=== PATIENT | female | born 1955 | race Caucasian/White ===

== ENCOUNTER 2018-12-30 13:27 | Inpatient (IN) ==
[2018-12-31 05:14] LABS: INR 1.4; Prothrombin Time 16.2 Seconds (9.4-12.1)
[2018-12-31] MEDS ORDERED: *HR* Enoxaparin 120 MG/0.8 ML SYRINGE SQ SCH (06:00)
[2018-12-31] MEDS: Metoprolol XL (24 HR) Succ 25 MG TAB.ER.24H PO SCH (09:57)
[2018-12-31] MEDS: *HR* Enoxaparin 150 MG/ML SYRINGE SQ SCH ×2 (10:05→17:29)
[2018-12-31] MEDS: Nystatin POWDER 30 GM BOTTLE TP SCH ×2 (10:05→20:22)
[2018-12-31] MEDS: *HR* Warfarin 5 MG TABLET PO SCH (17:29)
[2018-12-31] MEDS ORDERED: Mag Hydrox/Al Hydrox/Simeth 30 ML UDC PO PRN (20:33)
--- NOTE | 2018-12-31 22:50 | Internal Med History&Physical ---
Date of Encounter: 12/31/18 Time of Encounter: 22:45 Assessment and Plan (1) CVA (cerebral vascular accident) Current visit: No Status: Acute Continue warfarin and Lovenox and rehabilitation Qualifiers: CVA mechanism: embolism Precerebral and cerebral artery: middle cerebral artery Laterality of affected vessel: bilateral Qualified Code(s): I63.413 - Cerebral infarction due to embolism of bilateral middle cerebral arteries (2) Weakness of left upper extremity Current visit: Yes Status: Acute Rehabilitation (3) Atrial fibrillation Current visit: No Status: Chronic Continue Coumadin Qualifiers: Atrial fibrillation type: paroxysmal Qualified Code(s): I48.0 - Paroxysmal atrial fibrillation (4) Insomnia Current visit: Yes Status: Chronic Qualifiers: Insomnia type: unspecified Qualified Code(s): G47.00 - Insomnia, unspecified (5) Hypothyroid Current visit: Yes Status: Chronic Continue Synthroid Qualifiers: Hypothyroidism type: acquired Qualified Code(s): E03.9 - Hypothyroidism, unspecified (6) Hypertension Current visit: Yes Status: Chronic Continue metoprolol XL Qualifiers: Hypertension type: essential hypertension Qualified Code(s): I10 - Essential (primary) hypertension (7) CKD (chronic kidney disease) stage 3, GFR 30-59 ml/min Current visit: No Status: Chronic Continue to drink plenty of water (8) Diabetes mellitus Current visit: No Status: Chronic Continue proper diet Qualifiers: Diabetes mellitus type: type 2 Diabetes mellitus correction insulin use: without truck terminal manager use Diabetes mellitus complication status: without complication Qualified Code(s): E11.9 - Type 2 diabetes mellitus without complications (9) Morbid obesity with BMI of 45.0-49.9, adult Current visit: No Status: Chronic Decrease calories (10) Heart failure with preserved ejection fraction Current visit: Yes Status: Chronic Continue metoprolol XL Qualifiers: Heart failure chronicity: chronic Qualified Code(s): I50.32 - Chronic diastolic (congestive) heart failure (11) Eczema Current visit: Yes Status: Acute Moisturizing cream as needed Qualifiers: Eczema type: unspecified Qualified Code(s): L30.9 - Dermatitis, unspecified (12) Skin lesions Current visit: Yes Status: Acute (13) Orthostatic dizziness Current visit: Yes Status: Acute Keep hydrated and when she first stands up waiting until her dizziness goes away before she walks (14) Tinea Current visit: Yes Status: Acute (15) Hyperlipidemia Current visit: Yes Status: Acute Continue simvastatin Qualifiers: Hyperlipidemia type: unspecified Qualified Code(s): E78.5 - Hyperlipidemia, unspecified Internal Medicine - H&P: HPI Chief complaint: Left upper extremity weakness Admitted From: Home Plans for Post Hospital Care: Home History of present illness: 63 year old female was admitted to [facility] from December 27 to the 2018. She had stroke symptoms left arm weakness was admitted for care. She reports having the symptoms for about a day before she went into the emergency room. She denied any vision or hearing disturbances and the left lower extremity is was not involved. She reports having TIAs in the past and had carotids that his done but did not hear that there were abnormal. She is a former smoker about it [id number] history. 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 History migraine headaches and insomnia, medicine for that she has acid reflux she reports Pepcid were for home has morbid obesity, hypothyroidism. Peripheral edema, eczema and skin lesions she is concerned about potential cancer recommend she talk with her primary care about diet outpatient consult with dermatology she denies any chest pain shortness breath headache fatigue and abdominal pain associated systems ne gative. Questions answered concerns addressed Past Med Surg Social Fam HX - Past Medical History Medical history: atrial fibrillation, CVA (Left upper extremity weakness), GERD, hypertension, migraine, thyroid disease, TIA, other (Morbid obesity right eye blindness, left eye cataract, orthostatic hypotension, insomnia, eczema) Additional medical history: blind in R eye Psychiatric history: no psych history - Past Surgical History Surgical History: appendectomy, cholecystectomy Additional surgical history: left kidney removed, frontal lobe craniotomy - Social History Smoking Status: Former smoker Packs per day: 0.5 Smokeless Tobacco Status: No Alcohol use: none Drug use: none, other (Uses 3-4 cups coffee a day recommend she is no caffeine with her history of stroke) Current living situation: Home - Independent Activity Level: Independent ambulation - Family History Mother Living Status: (Lymphoma) Father Living Status: (Unsure cause) Internal Medicine - H&P: Meds Docusate [Colace] 200 mg PO DAILY PRN capsule 12/30/18 [Rx] Enoxaparin [Lovenox *PHARMACY WT BASED*] 120 mg SQ Q12HCO mg 12/30/18 [Rx] Levothyroxine [Synthroid] 112 mcg PO DAILY@0630 tablet 12/30/18 [Rx] MOM Conc [MILK OF MAGNESIA conc] 10 ml PO DAILY PRN ud.liq 12/30/18 [Rx] Metoprolol XL (24 HR) Succ [Toprol Xl] 12.5 mg PO DAILY tab.er.24h 12/30/18 [Rx] Nystatin POWDER [Nystop] 1 appl TP BID bottle 12/30/18 [Rx] Simvastatin [Zocor] 40 mg PO HS tablet 12/30/18 [Rx] Warfarin perPT [Coumadin perPT] 7.5 each PO DAILY@1800 each 12/30/18 [Rx] Allergy/AdvReac Type Severity Reaction Status Date / Time Penicillins Allergy Hives Verified 12/27/18 19:55 haloperidol [From Haldol] AdvReac Vomiting Verified 12/27/18 19:55 All Systems PM: A 10-system review of systems was performed and is negative for pertinent findings except as documented above in the HPI. - Constitutional Vitals: Temp Pulse Resp BP Pulse Ox 97.6 F 84 17 136/76 94 12/31/18 18:56 12/31/18 18:56 12/31/18 18:56 12/31/18 18:56 12/31/18 18:56 - Head Head exam: Present: atraumatic, normocephalic - Eye Eye exam: Present: PERRL, conjuntiva pink, sclera anicteric Pupils: Present: PERRL - Neck Neck exam general surgery: Present: supple, trachea midline. Absent: lymphadenopathy - Respiratory Respiratory exam: Present: CTAB. Absent: accessory muscle use, rales, rhonchi, wheezes - Cardiovascular Cardiovascular exam: Present: RRR, +S1, +S2. Absent: diastolic murmur, gallop, rubs, systolic murmur - GI/Abdominal GI/Abdominal exam: Present: normal bowel sounds, soft, no peritoneal signs. Absent: distended, tenderness - Extremities Exam Extremities exam: Present: warm. Absent: calf tenderness, cyanotic, pedal edema - Neurological Exam Neurological exam: Present: CN II-XII intact, oriented X3. Absent: pronater drift, facial droop, speech deficit Additional comments: Left upper extremity weakness, no trade manager strength - Skin Skin exam: Present: dry, intact Additional comments: multiple lesions of various sizes
[2018-12-31] MEDS ORDERED: traZODone 50 MG TABLET PO PRN (23:00)
[2019-01-01] MEDS: Famotidine 20 MG TABLET PO SCH ×3 (00:17→17:09)
[2019-01-01] MEDS: *HR* Enoxaparin 150 MG/ML SYRINGE SQ SCH ×2 (06:08→17:09)
[2019-01-01 06:43] LABS: Basophils % 0.6 %; Eosinophils # 0.2 K/mcL (0.0-0.6); Eosinophils % 3.5 %; Hematocrit 43.5 % (35.3-44.9); Hemoglobin 13.4 g/dL (11.5-15.4); Immature Granulocytes % 1.4 % (0-4); Lymphocytes # 1.7 K/mcL (0.6-4.6); Lymphocytes % 26.2 %; Mean Corpuscular HGB Conc 30.8 g/dL (31.6-35.5); Mean Corpuscular Hemoglobin 28.8 pg (28.0-33.3); Mean Corpuscular Volume 93.3 fL (83.0-100.0); Mean Platelet Volume 9.5 fL (9.4-12.4); Monocytes # 0.3 K/mcL (0.0-1.3); Monocytes % 5.4 %; Platelet Count 255 K/mcL (140-400); Red Blood Count 4.66 M/mcL (3.82-4.97); Red Cell Distribution Width 15.4 % (11.5-14.5); Segmented Neutrophils % 62.9 %; White Blood Count 6.3 K/mcL (4.3-11.1)
[2019-01-01 06:53] LABS: INR 1.8
[2019-01-01 07:05] LABS: Calcium 9.2 mg/dL (8.6-10.3); Chol/HDL Ratio 3.2 (0-4.9); Magnesium 2.2 mg/dL (1.6-2.6); Potassium 4.2 mEq/L (3.5-5.1)
[2019-01-01 07:45] LABS: Thyroid Stimulating Hormone 55.77 mcIU/mL (0.340-5.600)
[2019-01-01] MEDS: Metoprolol XL (24 HR) Succ 25 MG TAB.ER.24H PO SCH (08:51)
[2019-01-01] MEDS: Nystatin POWDER 30 GM BOTTLE TP SCH ×2 (08:52→20:15)
--- NOTE | 2019-01-01 12:31 | Internal Med Progress Note ---
Date of Encounter: 01/01/19 Time of Encounter: 12:30 - Assessment and plan (1) CVA (cerebral vascular accident) Current Visit: No Status: Acute Assessment and plan: Continue the warfarin and Lovenox and rehabilitation Qualifiers: CVA mechanism: embolism Precerebral and cerebral artery: middle cerebral artery Laterality of affected vessel: bilateral Qualified Code(s): I63.413 - Cerebral infarction due to embolism of bilateral middle cerebral arteries (2) Weakness of left upper extremity Current Visit: Yes Status: Acute Assessment and plan: About the same continue rehabilitation (3) Atrial fibrillation Current Visit: No Status: Chronic Assessment and plan: Rate control continue Coumadin Qualifiers: Atrial fibrillation type: paroxysmal Qualified Code(s): I48.0 - Paroxysmal atrial fibrillation (4) Insomnia Current Visit: Yes Status: Chronic Assessment and plan: Improved continue trazodone Qualifiers: Insomnia type: unspecified Qualified Code(s): G47.00 - Insomnia, unspecified (5) Hypothyroid Current Visit: Yes Status: Chronic Assessment and plan: TSA high 55 we will increase the levothyroxine to 125 g Qualifiers: Hypothyroidism type: acquired Qualified Code(s): E03.9 - Hypothyroidism, unspecified (6) Hypertension Current Visit: Yes Status: Chronic Assessment and plan: Controlled continue metoprolol Qualifiers: Hypertension type: essential hypertension Qualified Code(s): I10 - Essential (primary) hypertension (7) CKD (chronic kidney disease) stage 3, GFR 30-59 ml/min Current Visit: No Status: Chronic Assessment and plan: Stable continue on her (8) Diabetes mellitus Current Visit: No Status: Chronic Assessment and plan: Fasting sugar in impaired range so diabetes is controlled on diet Qualifiers: Diabetes mellitus type: type 2 Diabetes mellitus fdc insulin use: without fdc use Diabetes mellitus complication status: without complication Qualified Code(s): E11.9 - Type 2 diabetes mellitus without complications (9) Morbid obesity with BMI of 45.0-49.9, adult Current Visit: No Status: Chronic Assessment and plan: Calorie awareness (10) Heart failure with preserved ejection fraction Current Visit: Yes Status: Chronic Assessment and plan: Stable continue no shortness of breath continue metoprolol XL Qualifiers: Heart failure chronicity: chronic Qualified Code(s): I50.32 - Chronic diastolic (congestive) heart failure (11) Eczema Current Visit: Yes Status: Acute Qualifiers: Eczema type: unspecified Qualified Code(s): L30.9 - Dermatitis, unspecified (12) Skin lesions Current Visit: Yes Status: Acute Assessment and plan: She will asked the primary care provider about dermatology consult (13) Orthostatic dizziness Current Visit: Yes Status: Acute (14) Tinea Current Visit: Yes Status: Acute Assessment and plan: Continue nystatin (15) Hyperlipidemia Current Visit: Yes Status: Acute Assessment and plan: Continue simvastatin we will consider the triglyceride level after the TSH comes back down to normal Qualifiers: Hyperlipidemia type: unspecified Qualified Code(s): E78.5 - Hyperlipidemia, unspecified - Time Spent With Patient 25 - 35 minutes - Subjective Interval history: 63-year-old female resident to rehabilitation after having a CVA with left upper extremity weakness with multiple medical problems. She is here for rehabilitation she denies any chest pain or shortness of breath or other concerning symptoms. We restarted on Pepcid for acid reflex and trazodone for insomnia which seems to be helping. Order follow-up labs shows INR of 1.8 [place] 1.34) 14 triglycerides 176 VLDL 35 vitamin B-12 180 TSH 55.77 these were discussed with the patient she is going to increase the Synthroid and going a B12 supplement seems like her diabetes is diet controlled. Questions answered concerns addressed - Constitutional Vitals: Temp Pulse Resp BP Pulse Ox 97.7 F 75 20 121/77 93 01/01/19 06:38 01/01/19 06:38 01/01/19 06:38 01/01/19 06:38 01/01/19 06:38 Exam: General: Alert and oriented, no acute distress Lungs: Clear to auscultation bilaterally without wheezing or crackles Heart: Regular rate and rythms without murmer or rubs Abdomen: Soft, nontender, Extremities: no edema, redness, no contract design agent strength in the left upper lobe extremity and abduction is weak Internal Medicine: Result - Labs CBC & Chem 7: 01/01/19 06:15 01/01/19 06:15 Labs: Short CBC 01/01/19 Range/Units 06:15 WBC 6.3 (4.3-11.1) K/mcL Hgb 13.4 (11.5-15.4) g/dL Hct 43.5 (35.3-44.9) % Plt Count 255 (140-400) K/mcL Neutrophils # 4.0 (1.6-8.9) K/mcL BMP 01/01/19 06:15 Sodium 138 Potassium 4.2 Chloride 101 Carbon Dioxide 31 H BUN 22 Creatinine 1.34 H Glucose 114 H Calcium 9.2 - ABG Interpretation ABG results: PT/INR, D-dimer PT 21.0 Seconds (9.4-12.1) H 01/01/19 06:15 Consult Discharge Plan - Plan Referrals: Isaac Hernandez [Primary Care Provider] - 1 week
[2019-01-01] MEDS: Cyanocobalamin (B-12) 1,000 MCG TABLET PO SCH (17:09)
[2019-01-01] MEDS: *HR* Warfarin 5 MG TABLET PO SCH (17:09)
[2019-01-02 04:28] LABS: INR 2.2; Prothrombin Time 24.6 Seconds (9.4-12.1)
[2019-01-02] MEDS: *HR* Enoxaparin 150 MG/ML SYRINGE SQ SCH (06:00)
[2019-01-02] MEDS: Nystatin POWDER 30 GM BOTTLE TP SCH ×2 (07:45→20:44)
[2019-01-02] MEDS: Cyanocobalamin (B-12) 1,000 MCG TABLET PO SCH (07:45)
[2019-01-02] MEDS: Famotidine 20 MG TABLET PO SCH ×2 (07:45→16:31)
[2019-01-02] MEDS: Metoprolol XL (24 HR) Succ 25 MG TAB.ER.24H PO SCH (07:45)
[2019-01-02 09:15] LABS: Estimated Average Glucose 151 mg/dl
--- NOTE | 2019-01-02 10:55 | Internal Med Progress Note ---
Date of Encounter: 01/02/19 Time of Encounter: 10:10 - Assessment and plan (1) CVA (cerebral vascular accident) Current Visit: No Status: Acute Assessment and plan: January 02. MRI 12/26/2018 showed scattered acute infarcts within the frontal and parietal lobes bilaterally and 2 punctate acute infarcts in the left occipital lobe, areas of encephalomalacia and gliosis in the right parietal and temporal lobes, and mild global parenchymal volume loss and chronic microvascular ischemic changes. INR is now therapeutic. Lovenox be discontinued. Continue Coumadin and PT/OT. Qualifiers: CVA mechanism: embolism Precerebral and cerebral artery: middle cerebral artery Laterality of affected vessel: bilateral Qualified Code(s): I63.413 - Cerebral infarction due to embolism of bilateral middle cerebral arteries (2) Hypothyroid Current Visit: Yes Status: Chronic Assessment and plan: January 02. Synthroid was increased from 100 g daily on admission at [facility] to a dose of 112 g daily during her hospital stay. TSH today was further elevated at 55.77 on 01/01/2019. Increase dose to 200 g daily. TSH will be monitored. Qualifiers: Hypothyroidism type: acquired Qualified Code(s): E03.9 - Hypothyroidism, unspecified (3) Hypertension Current Visit: Yes Status: Chronic Assessment and plan: January 02. Continue Toprol XL Qualifiers: Hypertension type: essential hypertension Qualified Code(s): I10 - Essential (primary) hypertension (4) Diabetes mellitus Current Visit: No Status: Chronic Assessment and plan: January 02. Diet controlled. Hemoglobin A1c is 6.9%. Qualifiers: Diabetes mellitus type: type 2 Diabetes mellitus retirement insulin use: without tank terminal gauger use Diabetes mellitus complication status: without complication Qualified Code(s): E11.9 - Type 2 diabetes mellitus without complications (5) Atrial fibrillation Current Visit: No Status: Chronic Assessment and plan: January 02. Discontinue Lovenox and continue Coumadin for CVA prophylaxis. Qualifiers: Atrial fibrillation type: paroxysmal Qualified Code(s): I48.0 - Paroxysmal atrial fibrillation (6) Heart failure with preserved ejection fraction Current Visit: Yes Status: Chronic Assessment and plan: January 02. Echocardiogram cannot be completed on 12/27/2018. BN peptide normal at 35. Continue Toprol-XL. Qualifiers: Heart failure chronicity: chronic Qualified Code(s): I50.32 - Chronic diastolic (congestive) heart failure (7) CKD (chronic kidney disease) Current Visit: No Status: Suspected Assessment and plan: January 02. Monitor renal indices. Qualifiers: Chronic kidney disease stage: stage 3 (moderate) Qualified Code(s): N18.3 - Chronic kidney disease, stage 3 (moderate) - Subjective Interval history: January 02. She was hospitalized at [facility] December 2226 for CVA. Carotid Doppler study showed left proximal ICA with 60-79% stenosis. Neurology did not feel it was the cause of the CVA. She had atrial fibrillation documented (presumably new onset) and was started on Coumadin with Lovenox bridge. 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 - Constitutional Vitals: Temp Pulse Resp BP Pulse Ox 98.2 F 76 18 152/87 97 01/02/19 06:50 01/02/19 06:50 01/02/19 06:50 01/02/19 06:50 01/02/19 06:50 Exam: She is sitting in a chair at bedside resting comfortably. Her affect is bright and cheerful. Heart is regular without murmurs gallops or ectopics. Lungs are clear. Extremities show no pitting edema. Neurologic exam shows inability to pronate the left arm. She cannot elevate the left arm to same height as the right. Ankle and knee flexion and extension against resistance are 2 over 2 bilaterally Internal Medicine: Result - Labs CBC & Chem 7: 01/01/19 06:15 01/01/19 06:15 - ABG Interpretation ABG results: PT/INR, D-dimer PT 24.6 Seconds (9.4-12.1) H 01/02/19 03:53 Consult Discharge Plan - Plan Referrals: Isaac Hernandez [Primary Care Provider] - 1 week
[2019-01-02] MEDS ORDERED: Cyanocobalamin (B-12) 1,000 MCG/ML VIAL IM ONE (11:09)
[2019-01-02] MEDS: *HR* Warfarin 5 MG TABLET PO SCH (16:31)
[2019-01-03] MEDS: Famotidine 20 MG TABLET PO SCH ×2 (06:02→18:10)
[2019-01-03 07:31] LABS: INR 2.3; Prothrombin Time 26.2 Seconds (9.4-12.1)
[2019-01-03] MEDS: Nystatin POWDER 30 GM BOTTLE TP SCH ×2 (09:00→22:26)
[2019-01-03] MEDS: Cyanocobalamin (B-12) 1,000 MCG TABLET PO SCH (09:00)
[2019-01-03] MEDS: Metoprolol XL (24 HR) Succ 25 MG TAB.ER.24H PO SCH (09:00)
--- NOTE | 2019-01-03 15:11 | Internal Med Progress Note ---
Date of Encounter: 01/03/19 Time of Encounter: 15:04 - Assessment and plan (1) CVA (cerebral vascular accident) Current Visit: No Status: Acute Assessment and plan: January 02. MRI 12/26/2018 showed scattered acute infarcts within the frontal and parietal lobes bilaterally and 2 punctate acute infarcts in the left occipital lobe, areas of encephalomalacia and gliosis in the right parietal and temporal lobes, and mild global parenchymal volume loss and chronic microvascular ischemic changes. INR is now therapeutic. Lovenox be discontinued. Continue Coumadin and PT/OT. Qualifiers: CVA mechanism: embolism Precerebral and cerebral artery: middle cerebral artery Laterality of affected vessel: bilateral Qualified Code(s): I63.413 - Cerebral infarction due to embolism of bilateral middle cerebral arteries (2) Hypothyroid Current Visit: Yes Status: Chronic Assessment and plan: January 02. Synthroid was increased from 100 g daily on admission at [facility] to a dose of 112 g daily during her hospital stay. TSH today was further elevated at 55.77 on 01/01/2019. Increase dose to 200 g daily. TSH will be monitored. Qualifiers: Hypothyroidism type: acquired Qualified Code(s): E03.9 - Hypothyroidism, unspecified (3) Hypertension Current Visit: Yes Status: Chronic Assessment and plan: January 02. Continue Toprol XL Qualifiers: Hypertension type: essential hypertension Qualified Code(s): I10 - Essential (primary) hypertension (4) Diabetes mellitus Current Visit: No Status: Chronic Assessment and plan: January 02. Diet controlled. Hemoglobin A1c is 6.9%. Qualifiers: Diabetes mellitus type: type 2 Diabetes mellitus half-way insulin use: without intermediate accountant use Diabetes mellitus complication status: without complication Qualified Code(s): E11.9 - Type 2 diabetes mellitus without complications (5) Atrial fibrillation Current Visit: No Status: Chronic Assessment and plan: January 02. Discontinue Lovenox and continue Coumadin for CVA prophylaxis. Qualifiers: Atrial fibrillation type: paroxysmal Qualified Code(s): I48.0 - Paroxysmal atrial fibrillation (6) Heart failure with preserved ejection fraction Current Visit: Yes Status: Chronic Assessment and plan: January 02. Echocardiogram could not be completed on 12/27/2018. BN peptide normal at 35. Continue Toprol-XL. Qualifiers: Heart failure chronicity: chronic Qualified Code(s): I50.32 - Chronic diastolic (congestive) heart failure (7) CKD (chronic kidney disease) Current Visit: No Status: Chronic Assessment and plan: January 02. Monitor renal indices. Qualifiers: Chronic kidney disease stage: stage 3 (moderate) Qualified Code(s): N18.3 - Chronic kidney disease, stage 3 (moderate) - Subjective Interval history: January 02. She was hospitalized at [facility] December 2226 for CVA. Carotid Doppler study showed left proximal ICA with 60-79% stenosis. Neurology did not feel it was the cause of the CVA. She had atrial fibrillation documented (presumably new onset) and was started on Coumadin with Lovenox bridge. 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 January 03. She has no new complaints. She feels she is making progress in therapy. - Constitutional Vitals: Temp Pulse Resp BP Pulse Ox 98.4 F 72 16 133/83 96 01/03/19 06:51 01/03/19 06:51 01/03/19 06:51 01/03/19 06:51 01/03/19 06:51 Exam: She is resting comfortably in a chair at bedside and appears in no acute distress. Her affect is bright and cheerful. I reviewed her medications and lab results. Internal Medicine: Result - Labs CBC & Chem 7: 01/01/19 06:15 01/01/19 06:15 - ABG Interpretation ABG results: PT/INR, D-dimer PT 26.2 Seconds (9.4-12.1) H 01/03/19 06:18 Consult Discharge Plan - Plan Referrals: Isaac Hernandez [Primary Care Provider] - 1 week
[2019-01-03] MEDS: *HR* Warfarin 5 MG TABLET PO SCH (18:10)
[2019-01-04] MEDS: Metoprolol XL (24 HR) Succ 25 MG TAB.ER.24H PO SCH (09:00)
[2019-01-04] MEDS: Famotidine 20 MG TABLET PO SCH ×2 (09:00→16:55)
[2019-01-04] MEDS: Nystatin POWDER 30 GM BOTTLE TP SCH ×3 (09:01→20:48)
[2019-01-04] MEDS: Cyanocobalamin (B-12) 1,000 MCG TABLET PO SCH (09:01)
[2019-01-04] MEDS: MOM Conc 10 ML UD.LIQ PO PRN (16:54)
[2019-01-04] MEDS: *HR* Warfarin 5 MG TABLET PO SCH (16:55)
[2019-01-05] MEDS: Famotidine 20 MG TABLET PO SCH ×2 (06:30→17:22)
[2019-01-05] MEDS: Metoprolol XL (24 HR) Succ 25 MG TAB.ER.24H PO SCH (10:06)
[2019-01-05] MEDS: Cyanocobalamin (B-12) 1,000 MCG TABLET PO SCH (10:06)
[2019-01-05] MEDS: Nystatin POWDER 30 GM BOTTLE TP SCH ×2 (10:11→21:26)
--- NOTE | 2019-01-05 12:00 | Internal Med Progress Note ---
Date of Encounter: 01/05/19 Time of Encounter: 11:45 - Assessment and plan (1) CVA (cerebral vascular accident) Current Visit: No Status: Acute Assessment and plan: January 02. MRI 12/26/2018 showed scattered acute infarcts within the frontal and parietal lobes bilaterally and 2 punctate acute infarcts in the left occipital lobe, areas of encephalomalacia and gliosis in the right parietal and temporal lobes, and mild global parenchymal volume loss and chronic microvascular ischemic changes. INR is now therapeutic. Lovenox be discontinued. Continue Coumadin and PT/OT. January 05. Check PT/INR in a.m. Qualifiers: CVA mechanism: embolism Precerebral and cerebral artery: middle cerebral artery Laterality of affected vessel: bilateral Qualified Code(s): I63.413 - Cerebral infarction due to embolism of bilateral middle cerebral arteries (2) Hypothyroid Current Visit: Yes Status: Chronic Assessment and plan: January 02. Synthroid was increased from 100 g daily on admission at [facility] to a dose of 112 g daily during her hospital stay. TSH today was further elevated at 55.77 on 01/01/2019. Increase dose to 200 g daily. TSH will be monitored. Qualifiers: Hypothyroidism type: acquired Qualified Code(s): E03.9 - Hypothyroidism, unspecified (3) Hypertension Current Visit: Yes Status: Chronic Assessment and plan: January 02. Continue Toprol XL Qualifiers: Hypertension type: essential hypertension Qualified Code(s): I10 - Essential (primary) hypertension (4) Diabetes mellitus Current Visit: No Status: Chronic Assessment and plan: January 02. Diet controlled. Hemoglobin A1c is 6.9%. Qualifiers: Diabetes mellitus type: type 2 Diabetes mellitus terminal press operator insulin use: without usp use Diabetes mellitus complication status: without complication Qualified Code(s): E11.9 - Type 2 diabetes mellitus without complications (5) Atrial fibrillation Current Visit: No Status: Chronic Assessment and plan: January 02. Discontinue Lovenox and continue Coumadin for CVA prophylaxis. January 05. Recheck PT/INR in a.m. Qualifiers: Atrial fibrillation type: paroxysmal Qualified Code(s): I48.0 - Paroxysmal atrial fibrillation (6) Heart failure with preserved ejection fraction Current Visit: Yes Status: Chronic Assessment and plan: January 02. Echocardiogram could not be completed on 12/27/2018. BN peptide normal at 35. Continue Toprol-XL. Qualifiers: Heart failure chronicity: chronic Qualified Code(s): I50.32 - Chronic diastolic (congestive) heart failure (7) CKD (chronic kidney disease) Current Visit: No Status: Chronic Assessment and plan: January 02. Monitor renal indices. Qualifiers: Chronic kidney disease stage: stage 3 (moderate) Qualified Code(s): N18.3 - Chronic kidney disease, stage 3 (moderate) (8) B12 deficiency Current Visit: Yes Status: Acute Assessment and plan: January 05. She received B12 injection. Continue oral B12 supplement. - Subjective Interval history: January 02. She was hospitalized at [facility] December 2226 for CVA. Carotid Doppler study showed left proximal ICA with 60-79% stenosis. Neurology did not feel it was the cause of the CVA. She had atrial fibrillation documented (presumably new onset) and was started on Coumadin with Lovenox bridge. She reports prev ious CVA left her with left hemiparesis and right eye blindness. January 03. She has no new complaints. She feels she is making progress in therapy. January 05. She has no new complaints. - Constitutional Vitals: Temp Pulse Resp BP Pulse Ox 98.1 F 74 16 105/63 99 01/05/19 06:48 01/05/19 06:48 01/05/19 06:48 01/05/19 06:48 01/05/19 06:48 Exam: She is sitting on the side of the bed resting comfortably. Her affect is bright and cheerful. She stated she feels she is improving and nearing discharge. I r eviewed her medications and lab results. Internal Medicine: Result - Labs CBC & Chem 7: 01/01/19 06:15 01/01/19 06:15 - ABG Interpretation ABG results: PT/INR, D-dimer PT 26.2 Seconds (9.4-12.1) H 01/03/19 06:18 Consult Discharge Plan - Plan Referrals: Isaac Hernandez [Primary Care Provider] - 1 week
[2019-01-05] MEDS: *HR* Warfarin 5 MG TABLET PO SCH (17:23)
[2019-01-06 06:28] LABS: INR 3.4; Prothrombin Time 38.3 Seconds (9.4-12.1)
[2019-01-06] MEDS: Famotidine 20 MG TABLET PO SCH ×2 (07:54→17:43)
[2019-01-06] MEDS: Metoprolol XL (24 HR) Succ 25 MG TAB.ER.24H PO SCH (07:55)
[2019-01-06] MEDS: Cyanocobalamin (B-12) 1,000 MCG TABLET PO SCH (07:55)
[2019-01-06] MEDS: Nystatin POWDER 30 GM BOTTLE TP SCH ×2 (07:55→21:59)
[2019-01-06] MEDS: *HR* Warfarin 3 MG TABLET PO SCH (17:43)
[2019-01-07] MEDS: Metoprolol XL (24 HR) Succ 25 MG TAB.ER.24H PO SCH (08:36)
[2019-01-07] MEDS: Cyanocobalamin (B-12) 1,000 MCG TABLET PO SCH (08:36)
[2019-01-07] MEDS: Nystatin POWDER 30 GM BOTTLE TP SCH ×2 (08:36→20:24)
[2019-01-07] MEDS: Famotidine 20 MG TABLET PO SCH ×2 (08:36→18:10)
[2019-01-07] MEDS: *HR* Warfarin 3 MG TABLET PO SCH (18:09)
[2019-01-08] MEDS: Nystatin POWDER 30 GM BOTTLE TP SCH ×2 (07:51→20:52)
[2019-01-08] MEDS: Cyanocobalamin (B-12) 1,000 MCG TABLET PO SCH (07:51)
[2019-01-08] MEDS: Metoprolol XL (24 HR) Succ 25 MG TAB.ER.24H PO SCH (07:51)
[2019-01-08] MEDS: Famotidine 20 MG TABLET PO SCH ×2 (07:51→16:44)
--- NOTE | 2019-01-08 14:26 | Internal Med Progress Note ---
Date of Encounter: 01/08/19 Time of Encounter: 14:19 - Assessment and plan (1) CVA (cerebral vascular accident) Current Visit: No Status: Acute Assessment and plan: January 02. MRI 12/26/2018 showed scattered acute infarcts within the frontal and parietal lobes bilaterally and 2 punctate acute infarcts in the left occipital lobe, areas of encephalomalacia and gliosis in the right parietal and temporal lobes, and mild global parenchymal volume loss and chronic microvascular ischemic changes. INR is now therapeutic. Lovenox be discontinued. Continue Coumadin and PT/OT. January 05. Check PT/INR in a.m. January 08. Coumadin dose was reduced to 6 mg daily 01/06/2019. Recheck PT/INR in a.m. Qualifiers: CVA mechanism: embolism Precerebral and cerebral artery: middle cerebral artery Laterality of affected vessel: bilateral Qualified Code(s): I63.413 - Cerebral infarction due to embolism of bilateral middle cerebral arteries (2) Hypothyroid Current Visit: Yes Status: Chronic Assessment and plan: January 02. Synthroid was increased from 100 g daily on admission at [facility] to a dose of 112 g daily during her hospital stay. TSH today was further elevated at 55.77 on 01/01/2019. Increase dose to 200 g daily. TSH will be monitored. Qualifiers: Hypothyroidism type: acquired Qualified Code(s): E03.9 - Hypothyroidism, unspecified (3) Hypertension Current Visit: Yes Status: Chronic Assessment and plan: January 02. Continue Toprol XL Qualifiers: Hypertension type: essential hypertension Qualified Code(s): I10 - Essential (primary) hypertension (4) Diabetes mellitus Current Visit: No Status: Chronic Assessment and plan: January 02. Diet controlled. Hemoglobin A1c is 6.9%. Qualifiers: Diabetes mellitus type: type 2 Diabetes mellitus longterm insulin use: without smokehouse operator use Diabetes mellitus complication status: without complication Qualified Code(s): E11.9 - Type 2 diabetes mellitus without complications (5) Atrial fibrillation Current Visit: No Status: Chronic Assessment and plan: January 02. Discontinue Lovenox and continue Coumadin for CVA prophylaxis. January 05. Recheck PT/INR in a.m. Qualifiers: Atrial fibrillation type: paroxysmal Qualified Code(s): I48.0 - Paroxysmal atrial fibrillation (6) Heart failure with preserved ejection fraction Current Visit: Yes Status: Chronic Assessment and plan: January 02. Echocardiogram could not be completed on 12/27/2018. BN peptide normal at 35. Continue Toprol-XL. Qualifiers: Heart failure chronicity: chronic Qualified Code(s): I50.32 - Chronic diastolic (congestive) heart failure (7) CKD (chronic kidney disease) Current Visit: No Status: Chronic Assessment and plan: January 02. Monitor renal indices. Qualifiers: Chronic kidney disease stage: stage 3 (moderate) Qualified Code(s): N18.3 - Chronic kidney disease, stage 3 (moderate) (8) B12 deficiency Current Visit: Yes Status: Acute Assessment and plan: January 05. She received B12 injection. Continue oral B12 supplement. - Subjective Interval history: January 02. She was hospitalized at [facility] December 2226 for CVA. Carotid Doppler study showed left proximal ICA with 60-79% stenosis. Neurology did not feel it was the cause of the CVA. She had atrial fibrillation documented (presumably new onset) and was started on Coumadin with Lovenox bridge. 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 January 03. She has no new complaints. She feels she is making progress in therapy. January 05. She has no new complaints. January 08. She has no new complaints. She feels she is making slight gains in left arm strength. - Constitutional Vitals: Temp Pulse Resp BP Pulse Ox 97.6 F 85 15 117/74 97 01/08/19 06:59 01/08/19 06:59 01/08/19 06:59 01/08/19 06:59 01/08/19 06:59 Exam: She is sitting on the side of bed resting comfortably and appears in no severe distress. Her affect is overall cheerful. She cannot lift her left arm to a level horizontally. I reviewed her medications and lab results. Internal Medicine: Result - Labs CBC & Chem 7: 01/01/19 06:15 01/01/19 06:15 - ABG Interpretation ABG results: PT/INR, D-dimer PT 38.3 Seconds (9.4-12.1) H 01/06/19 04:59 Consult Discharge Plan - Plan Referrals: Isaac Hernandez [Primary Care Provider] - 1 week
[2019-01-08] MEDS: *HR* Warfarin 3 MG TABLET PO SCH (16:44)
[2019-01-09 06:57] LABS: INR 3.3; Prothrombin Time 37.7 Seconds (9.4-12.1)
[2019-01-09] MEDS: Cyanocobalamin (B-12) 1,000 MCG TABLET PO SCH (07:58)
[2019-01-09] MEDS: Nystatin POWDER 30 GM BOTTLE TP SCH ×2 (07:58→20:29)
[2019-01-09] MEDS: Metoprolol XL (24 HR) Succ 25 MG TAB.ER.24H PO SCH (07:58)
[2019-01-09] MEDS: Famotidine 20 MG TABLET PO SCH ×2 (07:58→16:55)
[2019-01-09] MEDS: *HR* Warfarin 3 MG TABLET PO SCH (16:55)
[2019-01-10] MEDS: Cyanocobalamin (B-12) 1,000 MCG TABLET PO SCH (08:13)
[2019-01-10] MEDS: Metoprolol XL (24 HR) Succ 25 MG TAB.ER.24H PO SCH (08:13)
[2019-01-10] MEDS: Famotidine 20 MG TABLET PO SCH ×2 (08:14→17:26)
[2019-01-10] MEDS: Nystatin POWDER 30 GM BOTTLE TP SCH ×2 (08:14→20:15)
--- NOTE | 2019-01-10 14:53 | Internal Med Progress Note ---
Date of Encounter: 01/10/19 Time of Encounter: 14:46 - Assessment and plan (1) CVA (cerebral vascular accident) Current Visit: No Status: Acute Assessment and plan: January 02. MRI 12/26/2018 showed scattered acute infarcts within the frontal and parietal lobes bilaterally and 2 punctate acute infarcts in the left occipital lobe, areas of encephalomalacia and gliosis in the right parietal and temporal lobes, and mild global parenchymal volume loss and chronic microvascular ischemic changes. INR is now therapeutic. Lovenox be discontinued. Continue Coumadin and PT/OT. January 05. Check PT/INR in a.m. January 08. Coumadin dose was reduced to 6 mg daily 01/06/2019. Recheck PT/INR in a.m. January 10. INR elevated at 3.3. Hold Coumadin 48 hours and recheck Qualifiers: CVA mechanism: embolism Precerebral and cerebral artery: middle cerebral artery Laterality of affected vessel: bilateral Qualified Code(s): I63.413 - Cerebral infarction due to embolism of bilateral middle cerebral arteries (2) Hypothyroid Current Visit: Yes Status: Chronic Assessment and plan: January 02. Synthroid was increased from 100 g daily on admission at [facility] to a dose of 112 g daily during her hospital stay. TSH today was further elevated at 55.77 on 01/01/2019. Increase dose to 200 g daily. TSH will be monitored. Qualifiers: Hypothyroidism type: acquired Qualified Code(s): E03.9 - Hypothyroidism, unspecified (3) Hypertension Current Visit: Yes Status: Chronic Assessment and plan: January 02. Continue Toprol XL Qualifiers: Hypertension type: essential hypertension Qualified Code(s): I10 - Essential (primary) hypertension (4) Diabetes mellitus Current Visit: No Status: Chronic Assessment and plan: January 02. Diet controlled. Hemoglobin A1c is 6.9%. Qualifiers: Diabetes mellitus type: type 2 Diabetes mellitus mcc insulin use: without long term care administrator use Diabetes mellitus complication status: without complication Qualified Code(s): E11.9 - Type 2 diabetes mellitus without complications (5) Atrial fibrillation Current Visit: No Status: Chronic Assessment and plan: January 02. Discontinue Lovenox and continue Coumadin for CVA prophylaxis. January 05. Recheck PT/INR in a.m. January 10. Will hold Coumadin and recheck INR as per above. Qualifiers: Atrial fibrillation type: paroxysmal Qualified Code(s): I48.0 - Paroxysmal atrial fibrillation (6) Heart failure with preserved ejection fraction Current Visit: Yes Status: Chronic Assessment and plan: January 02. Echocardiogram could not be completed on 12/27/2018. BN peptide normal at 35. Continue Toprol-XL. Qualifiers: Heart failure chronicity: chronic Qualified Code(s): I50.32 - Chronic diastolic (congestive) heart failure (7) CKD (chronic kidney disease) Current Visit: No Status: Chronic Assessment and plan: January 02. Monitor renal indices. January 10. Recheck labs in a.m. Qualifiers: Chronic kidney disease stage: stage 3 (moderate) Qualified Code(s): N18.3 - Chronic kidney disease, stage 3 (moderate) (8) B12 deficiency Current Visit: Yes Status: Acute Assessment and plan: January 05. She received B12 injection. Continue oral B12 supplement. - Subjective Interval history: January 02. She was hospitalized at [facility] December 2226 for CVA. Carotid Doppler study showed left proximal ICA with 60-79% stenosis. Neurology did not feel it was the cause of the CVA. She had atrial fibrillation documented (presumably new onset) and was started on Coumadin with Lovenox bridge. 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 January 03. She has no new complaints. She feels she is making progress in therapy. January 05. She has no new complaints. January 08. She has no new complaints. She feels she is making slight gains in left arm strength. January 10. She has no new complaints. - Constitutional Vitals: Temp Pulse Resp BP Pulse Ox 97.9 F 95 20 161/99 98 01/10/19 05:56 01/10/19 05:56 01/10/19 05:56 01/10/19 05:56 01/10/19 05:56 Exam: She is resting comfortably in bed and appears in no acute distress. Her affect is cheerful. She is appropriate in conversation. Extremities show no pitting edema. I reviewed her medications and lab results. Internal Medicine: Result - Labs CBC & Chem 7: 01/01/19 06:15 01/01/19 06:15 - ABG Interpretation ABG results: PT/INR, D-dimer PT 37.7 Seconds (9.4-12.1) H 01/09/19 06:05 Consult Discharge Plan - Plan Referrals: Isaac Hernandez [Primary Care Provider] - 1 week
[2019-01-11 06:04] LABS: Basophils % 0.5 %; Eosinophils # 0.3 K/mcL (0.0-0.6); Eosinophils % 4.5 %; Hematocrit 38.8 % (35.3-44.9); Hemoglobin 12.3 g/dL (11.5-15.4); Immature Granulocytes % 0.3 % (0-4); Lymphocytes # 1.2 K/mcL (0.6-4.6); Lymphocytes % 18.8 %; Mean Corpuscular HGB Conc 31.7 g/dL (31.6-35.5); Mean Corpuscular Hemoglobin 28.7 pg (28.0-33.3); Mean Corpuscular Volume 90.7 fL (83.0-100.0); Mean Platelet Volume 10.2 fL (9.4-12.4); Monocytes # 0.5 K/mcL (0.0-1.3); Monocytes % 6.9 %; Neutrophils # 4.5 K/mcL (1.6-8.9); Platelet Count 196 K/mcL (140-400); Red Blood Count 4.28 M/mcL (3.82-4.97); Red Cell Distribution Width 16.6 % (11.5-14.5); White Blood Count 6.5 K/mcL (4.3-11.1)
[2019-01-11] MEDS: Famotidine 20 MG TABLET PO SCH ×2 (06:05→16:41)
[2019-01-11 06:34] LABS: Albumin 3.3 g/dL (3.5-5.7); Albumin/Globulin Ratio 1.1 (1.1-2.2); Bilirubin,Total 0.4 mg/dL (0.3-1.0); Calcium 8.9 mg/dL (8.6-10.3); Globulin 3.1 g/dL (2.4-3.5); Potassium 4.2 mEq/L (3.5-5.1); Total Protein 6.4 g/dL (6.4-8.9)
[2019-01-11] MEDS: Metoprolol XL (24 HR) Succ 25 MG TAB.ER.24H PO SCH (09:09)
[2019-01-11] MEDS: Cyanocobalamin (B-12) 1,000 MCG TABLET PO SCH (09:10)
[2019-01-11] MEDS: Nystatin POWDER 30 GM BOTTLE TP SCH ×2 (09:10→19:27)
[2019-01-11] MEDS: MOM Conc 10 ML UD.LIQ PO PRN (21:56)
[2019-01-12] MEDS: Famotidine 20 MG TABLET PO SCH ×2 (06:05→17:40)
[2019-01-12] MEDS: Metoprolol XL (24 HR) Succ 25 MG TAB.ER.24H PO SCH (10:14)
[2019-01-12] MEDS: Cyanocobalamin (B-12) 1,000 MCG TABLET PO SCH (10:14)
[2019-01-12] MEDS: Nystatin POWDER 30 GM BOTTLE TP SCH ×2 (10:15→21:42)
[2019-01-13] MEDS: Cyanocobalamin (B-12) 1,000 MCG TABLET PO SCH (08:58)
[2019-01-13] MEDS: Famotidine 20 MG TABLET PO SCH ×2 (08:59→17:13)
[2019-01-13] MEDS: Metoprolol XL (24 HR) Succ 25 MG TAB.ER.24H PO SCH (08:59)
--- NOTE | 2019-01-13 13:47 | Discharge Summary ---
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 (2) Hypothyroid Priority: Secondary Status: Chronic Qualifiers: Hypothyroidism type: acquired Qualified Code(s): E03.9 - Hypothyroidism, unspecified (3) Hypertension Priority: Secondary Status: Chronic Qualifiers: Hypertension type: essential hypertension Qualified Code(s): I10 - Essential (primary) hypertension (4) Diabetes mellitus Priority: Secondary Status: Chronic Qualifiers: Diabetes mellitus type: type 2 Diabetes mellitus terminal supervisor insulin use: without terminal supervisor use Diabetes mellitus complication status: without complication Qualified Code(s): E11.9 - Type 2 diabetes mellitus without complications (5) Atrial fibrillation Priority: Secondary Status: Chronic Qualifiers: Atrial fibrillation type: paroxysmal Qualified Code(s): I48.0 - Paroxysmal atrial fibrillation (6) Heart failure with preserved ejection fraction Priority: Secondary Status: Chronic Qualifiers: Heart failure chronicity: chronic Qualified Code(s): I50.32 - Chronic diastolic (congestive) heart failure (7) CKD (chronic kidney disease) Priority: Secondary Status: Chronic Qualifiers: Chronic kidney disease stage: stage 3 (moderate) Qualified Code(s): N18.3 - Chronic kidney disease, stage 3 (moderate) (8) B12 deficiency Priority: Secondary Status: Acute Hospital course: Ms. Jauregui is a 64 year old female who was hospitalized at [facility] December 2226 for CVA. Carotid Doppler study showed left proximal ICA with 60-79% stenosis. Neurology did not feel it was the cause of the CVA. She had atrial fibrillation documented (presumably new onset) and was started on Coumadin with Lovenox bridge. She had physical therapy and occupational therapy evaluations with ongoing intervention. Lovenox was discontinued when Coumadin reached therapeutic level. Her Coumadin dose was adjusted to 6 mg daily. Her PCP can monitor PT/ INR. TSH returned elevated 55.77 on 01/01/2019. Synthroid dose was increased to 200 g daily. Her PCP can monitor TSH. Hemoglobin A1c returned acceptable at 6.9%. B12 level returned low at 180. She was given a B12 injection and started on oral B12 supplement. Her PCP can monitor. On January 13 she was stable for discharge home. A hemiwalker was prescribed for safety in ambulation. She will follow with her PCP within 1 week. - Time Spent with Patient Total time spent providing and/or coordinating discharge services: - Discharge Medications Prescriptions: New Warfarin [Coumadin] 6 mg PO 1800 #90 tablet Levothyroxine [Synthroid] 200 mcg PO DAILY@0630 #60 tablet Cyanocobalamin (B-12) [Vitamin B12] 1,000 mcg PO DAILY #30 tablet Continued Docusate [Colace] 200 mg PO DAILY PRN capsule PRN Reason: Constipation Warfarin perPT [Coumadin perPT] 7.5 each PO DAILY@1800 each MOM Conc [MILK OF MAGNESIA conc] 10 ml PO DAILY PRN ud.liq PRN Reason: Constipation Nystatin POWDER [Nystop] 1 appl TP BID bottle Metoprolol XL (24 HR) Succ [Toprol Xl] 12.5 mg PO DAILY tab.er.24h Simvastatin [Zocor] 40 mg PO HS #30 tablet Discontinued Enoxaparin [Lovenox *PHARMACY WT BASED*] 120 mg SQ Q12HCO mg Levothyroxine [Synthroid] 112 mcg PO DAILY@0630 tablet Home Medications: Docusate [Colace] 200 mg PO DAILY PRN capsule 12/30/18 [Rx] MOM Conc [MILK OF MAGNESIA conc] 10 ml PO DAILY PRN ud.liq 12/30/18 [Rx] Metoprolol XL (24 HR) Succ [Toprol Xl] 12.5 mg PO DAILY tab.er.24h 12/30/18 [Rx] Nystatin POWDER [Nystop] 1 appl TP BID bottle 12/30/18 [Rx] Warfarin perPT [Coumadin perPT] 7.5 each PO DAILY@1800 each 12/30/18 [Rx] Cyanocobalamin (B-12) [Vitamin B12] 1,000 mcg PO DAILY #30 tablet 01/13/19 [Rx] Levothyroxine [Synthroid] 200 mcg PO DAILY@0630 #60 tablet 01/13/19 [Rx] Simvastatin [Zocor] 40 mg PO HS #30 tablet 01/13/19 [Rx] Warfarin [Coumadin] 6 mg PO 1800 #90 tablet 01/13/19 [Rx] Allergies/Adverse Reactions: Allergy/AdvReac Type Severity Reaction Status Date / Time Penicillins Allergy Hives Verified 12/27/18 19:55 haloperidol [From Haldol] AdvReac Vomiting Verified 12/27/18 19:55 Date of admission: 12/30/18 19:27 Primary care physician: Isaac Hernandez Consults: 12/30/18 22:36 Consult to Occupational Therapy [CONS] Routine Comment: Evaluate, devilop and impliment plan of care Reason for Consult: Evaluate, devilop and impliment plan of care Does patient have active BEDREST order?: No Is patient medically & hemodynamically stable?: Yes Patient assessed for mobility or mobilized this visit?: Yes Consult to Physical Therapy [CONS] Routine Comment: Evaluate, devilop and impliment plan of care Reason for Consult: Evaluate, devilop and impliment plan of care Does patient have active BEDREST order?: No Is patient medically & hemodynamically stable?: Yes Patient assessed for mobility or mobilized this visit?: Yes Consult to Curriculum And Instruction Director [CONS] Routine Reason for SW Consult: discharge planning - Constitutional Vitals: Temp Pulse Resp BP Pulse Ox 97.6 F 86 18 118/70 95 01/13/19 06:25 01/13/19 06:25 01/13/19 06:25 01/13/19 06:25 01/13/19 09:10 - Patient Status Disposition: Home Health Service - Discharge Instructions Follow Up With: Isaac Hernandez [Primary Care Provider] - 1 week - Diet and Activity Activity: as per physical therapy Diet: low fat, low cholesterol, low salt diet
--- NOTE | 2019-01-13 14:02 | Physician Discharge Referral ---
Home Health/Hosp Referral Info Transfer to: Home Health Attending Provider: Humberto Provider in Charge Post Discharge: PCP - Diagnosis (1) CVA (cerebral vascular accident) Priority: Primary Status: Acute (2) Hypothyroid Priority: Secondary Status: Chronic (3) Hypertension Priority: Secondary Status: Chronic (4) Diabetes mellitus Priority: Secondary Status: Chronic (5) Atrial fibrillation Priority: Secondary Status: Chronic (6) Heart failure with preserved ejection fraction Priority: Secondary Status: Chronic (7) CKD (chronic kidney disease) Priority: Secondary Status: Chronic (8) B12 deficiency Priority: Secondary Status: Acute - Respiratory Orders Smoking Cessation: Smoking cessation has been advised. For more information, call the [place] Tobacco Quit Line at 1-704-KGIA-NOW. - Diet/Nutrition Diet/Nutrition Orders: Cardiac - Activity Activity Orders: Walker - Services Needed Following services are medically necessary services: Nursing, Home Health Aide, Physical Therapy, Occupational Therapy - Transfer Medications Prescriptions: Warfarin [Coumadin] 6 mg PO 1800 #90 tablet Levothyroxine [Synthroid] 200 mcg PO DAILY@0630 #60 tablet Cyanocobalamin (B-12) [Vitamin B12] 1,000 mcg PO DAILY #30 tablet Simvastatin [Zocor] 40 mg PO HS #30 tablet Home Medications: Docusate [Colace] 200 mg PO DAILY PRN capsule 12/30/18 [Rx] MOM Conc [MILK OF MAGNESIA conc] 10 ml PO DAILY PRN ud.liq 12/30/18 [Rx] Metoprolol XL (24 HR) Succ [Toprol Xl] 12.5 mg PO DAILY tab.er.24h 12/30/18 [Rx] Nystatin POWDER [Nystop] 1 appl TP BID bottle 12/30/18 [Rx] Warfarin perPT [Coumadin perPT] 7.5 each PO DAILY@1800 each 12/30/18 [Rx] Cyanocobalamin (B-12) [Vitamin B12] 1,000 mcg PO DAILY #30 tablet 01/13/19 [Rx] Levothyroxine [Synthroid] 200 mcg PO DAILY@0630 #60 tablet 01/13/19 [Rx] Simvastatin [Zocor] 40 mg PO HS #30 tablet 01/13/19 [Rx] Warfarin [Coumadin] 6 mg PO 1800 #90 tablet 01/13/19 [Rx] Allergies/Adverse Reactions: Allergy/AdvReac Type Severity Reaction Status Date / Time Penicillins Allergy Hives Verified 12/27/18 19:55 haloperidol [From Haldol] AdvReac Vomiting Verified 12/27/18 19:55 Certification: Further, I certify that my clinical findings support that this patient is homebound (i.e. absences from home require considerable and taxing effort and are for medical reasons or spiritism services or infrequently or short duration when for other reasons) because: Homebound Reason: Leaving home requires considerable and taxing effort due to condition (Impaired walking ability secondary to CVA.) Attestation: My signature below is to certify that this patient is under my care and that I, or nurse practitioner, or a physician's editorial assistant working with me, has a [id number] encounter with this patient.
[2019-01-13] MEDS: Nystatin POWDER 30 GM BOTTLE TP SCH ×2 (16:45→21:41)
[2019-01-13] MEDS: *HR* Warfarin 3 MG TABLET PO SCH (17:13)
[2019-01-13 19:38] VITALS: BP 134/78
== END 2019-01-13 23:30 | disposition home health service (06) | DRG 57 ==
LOC: INPPIK 19:27
PROVIDERS: ADMIT Internal Medicine; ATTEND Internal Medicine